=== PATIENT | female | born 1990 | race Two or more races ===

== ENCOUNTER 2016-12-24 11:49 | Emergency (ER) | payer MEDICARE, OTHER ==
[~2016-12-24 11:49] MED LIST: BENTYL10 M1 PO; DEPAKOTE PO; DESYREL100 MG PO; IBUPROFEN600 MG PO; MIRALAX17 GM PO; SENOKOT S1 TAB PO; STRATTERA40 MG PO; TENEX1 M1 PO; TOPAMAX50 MG PO; TRAZODONE HCL100 MG PO; TRILEPTAL PO; TRILEPTAL300 MG PO; ZOLOFT100 MG PO
== END 2016-12-24 13:29 | disposition home or self-care (01) ==
LOC: CED 11:49
DX: S09.90XA Unspecified injury of head, initial encounter (principal); F17.210 Nicotine dependence, cigarettes, uncomplicated; Z88.5 Allergy status to narcotic agent; Z88.0 Allergy status to penicillin; Z79.899 Other long term (current) drug therapy; X58.XXXA Exposure to other specified factors, initial encounter
CPT/HCPCS: 99282